=== PATIENT | female | born 1980 | race Caucasian/White ===

== ENCOUNTER → 2017-03-07 | Outpatient (CLI) | payer OTHER ==
[~2017-03-07] MED LIST: BCPILLS PO; CHOL20009 PO; MISCCAP80 PO; OMEP20TA14 PO
== END | disposition home or self-care (01) ==
LOC: C.PAPS 16:54
PROVIDERS: ATTEND Physician Assistant
DX: Z01.419 Encounter for gynecological examination (general) (routine) without abnormal findings (principal)